=== PATIENT | male | born 2005 | race Caucasian/White ===

== ENCOUNTER 2024-01-28 05:45 | Inpatient (IN) | payer BC, SELFPAY ==
[2024-01-28] VITALS (10 sets, daily range): BP systolic 110–140; BP diastolic 52–89; BMI 27.0; BMI 25.1
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
[2024-01-28 04:31] LABS: % Basophils 0.3 % (0-2); % Eosinophils 1.2 % (0-6); % Immature Granulocytes 0.2 % (0-0.5); % Lymphocytes 30.2 % (20.5-51.1); % Monocytes 9.5 % (1.7-9.3); % Neutrophils 58.6 % (42.2-75.2); Absolute Eosinophils 0.1 10^3/uL (0-0.7); Absolute Lymphocytes 2.6 10^3/uL (1.2-3.4); Absolute Monocytes 0.8 10^3/uL (0.1-0.6); Hematocrit 40.2 % (39.0-52.0); Hemoglobin 14.2 g/dL (13.0-18.0); Mean Corp Hgb Conc. 35.3 g/dL (33.0-37.0); Mean Corpuscular Hgb 32.3 pg (27.0-31.0); Mean Corpuscular Volume 91.4 fL (80.0-94.0); Mean Platelet Volume 9.6 fL (7.4-10.4); Nucleated Red Blood Cells % 0 % (-); Platelet Count 257 10^3/uL (130-400); Red Cell Dist. Width 11.7 % (11.5-14.5); White Blood Cell Count 8.6 10^3/uL (4.8-10.8)
[2024-01-28 04:47] LABS: ALT (SGPT) 37 U/L (0-50); AST (SGOT) 35 U/L (17-59); Albumin 3.9 g/dl (3.5-5.0); Alkaline Phosphatase 77 U/L (38-126); Blood Urea Nitrogen 14 mg/dl (9-20); Calcium 9.2 mg/dl (8.4-10.2); Carbon Dioxide 29 mmol/L (22-30); Chloride 104 mmol/L (98-107); Estimated Creatinine Clearance > 125 ml/min; Glucose 90 mg/dl (70-99); Lactic Acid 1.1 mmol/L (0.7-2.0); Potassium 3.6 mmol/L (3.5-5.1); Sodium 141 mmol/L (135-145); Total Bilirubin 0.7 mg/dl (0.2-1.3); Total Protein 6.6 g/dl (6.3-8.2); eGFR > 60.00
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
[2024-01-28] MEDS: ANCEF 10 IV (04:59)
[2024-01-28] MEDS: ZOSYN 50 IV ×4 (06:13→23:25)
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
--- NOTE | 2024-01-28 12:17 | WOUNDNOTE ---
RIGHT ARM/SHOULDER
--- NOTE | 2024-01-28 12:17 | WOUNDNOTE ---
RIGHT BACK ABRASION
--- NOTE | 2024-01-28 12:18 | WOUNDNOTE ---
RIGHT SHOULDER AND UPPER BACK
--- NOTE | 2024-01-28 12:18 | WOUNDNOTE ---
RIGHT SHOULDER AND UPPER BACK
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
[2024-01-28] MEDS: FLUSH (NSS) 1 FLUSH IV (23:26)
[2024-01-29] MEDS: ZOSYN 50 IV ×2 (05:26→11:20)
[2024-01-29 07:05] VITALS: BP 109/73
[2024-01-29] MEDS: TYLENOL 650 MG PO (09:51)
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
--- NOTE | 2024-01-29 12:03 | CM ---
Patient seen bedside, initial assessment completed. Patient lives with family, is independent with ADLs/IADLS. Patient reports he does not have a PCP, Uncle is in the medical field and will see patient if ever needed. [facility]
in [place]. Patient for discharge today. Patient will transport himself home.
Plan; home no needs.
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
== END 2024-01-29 12:04 | disposition home or self-care (01) | DRG 603 ==
LOC: 4 EAST ACU 05:45
PROVIDERS: ADMITTING PHYSICIAN Hospitalist; ATTENDING PHYSICIAN Internal Medicine; EMERGENCY PHYSICIAN Student in an Organized Health Care Education/Training Program
DX: L03.113 Cellulitis of right upper limb (principal); S40.811A Abrasion of right upper arm, initial encounter; V29.408A Other motorcycle driver injured in collision with unspecified motor vehicles in traffic accident, initial encounter; F17.210 Nicotine dependence, cigarettes, uncomplicated
CPT/HCPCS: 80053; 83605; 85025; 93971

== ENCOUNTER → 2024-02-15 07:54 | Outpatient (REF) | payer BC, SELFPAY | LOC: WOUND 07:54 | PROVIDERS: ATTENDING PHYSICIAN Surgery | DX: S40.811A Abrasion of right upper arm, initial encounter (principal); S50.311A Abrasion of right elbow, initial encounter; S50.811A Abrasion of right forearm, initial encounter; F17.200 Nicotine dependence, unspecified, uncomplicated; V29.99XA Rider (driver) (passenger) of other motorcycle injured in unspecified traffic accident, initial encounter | CPT/HCPCS: 11042; 99203 ==